=== PATIENT | male | born 1960 | race African-American/Black ===

== ENCOUNTER 2023-11-11 21:15 | Inpatient (IN) | payer OTHER ==
[2023-11-11 22:22] VITALS: BMI 18.6
[2023-11-11] MEDS ORDERED: ACETAMINOPHEN 325 MG TABLET (FP) PO PRN (22:35)
[2023-11-11] MEDS ORDERED: guaiFENesin 600 MG TABLET.ER (FP) PO PRN (22:35)
[2023-11-11] MEDS ORDERED: P-EPHED 60MG/TRIPROLIDI 2.5MG TABLET PO PRN (22:35)
[2023-11-11] MEDS ORDERED: LOPERAMIDE HCL 2 MG CAPSULE PO PRN (22:35)
[2023-11-11] MEDS ORDERED: IBUPROFEN 400 MG TABLET (FP) PO PRN (22:35)
[2023-11-11] MEDS ORDERED: BENZOCAINE/MENTHOL (CHLORASEPTIC ) LOZENGE MM PRN (22:35)
[2023-11-11] MEDS ORDERED: POLYETHYLENE GLYCOL (HEALTHYLAX) 3350 17 GM PACKET PO PRN (22:35)
[2023-11-11] MEDS ORDERED: BISMUTH SUBSALICYLATE 524 MG/30 ML PO PRN (22:35)
[2023-11-11] MEDS ORDERED: MAG HYDROX/AL HYDROX/SIMETH 30 ML UNIT-DOSE CUP PO PRN (22:35)
[2023-11-11] MEDS ORDERED: NALOXONE HCL 0.4 MG/ML VIAL IM PRN (22:35)
[2023-11-11] MEDS ORDERED: NICOTINE POLACRILEX 2 MG LOZENGE BC PRN (22:35)
[2023-11-11] MEDS ORDERED: MAGNESIUM HYDROX 2400MG/30ML ORAL SUSPENSION 30 ML CUP PO PRN (22:35)
[2023-11-11] MEDS ORDERED: DICYCLOMINE HCL 10 MG CAPSULE PO PRN (22:35)
[2023-11-11] MEDS ORDERED: NALOXONE HCL (KLOXXADO) 8 MG SPRAY NS PRN (22:35)
[2023-11-11] MEDS ORDERED: BENZONATATE 200 MG CAPSULE PO PRN (22:35)
[2023-11-11] MEDS ORDERED: IBUPROFEN 600 MG TABLET (FP) PO PRN (22:35)
[2023-11-12] MEDS: cloNIDine HCL 0.1 MG TABLET PO ONE ×4 (00:15→13:53)
[2023-11-12] MEDS: ERYTHROMYCIN 0.5% OPHTHALMIC OINTMENT 3.5 GM TUBE OS SCH (00:17)
[2023-11-12] MEDS: AMOX TR/POT CLAV 875MG/125MG TABLETS (FP) PO SCH (07:10)
[2023-11-12 09:52] LABS: POTASSIUM 4.2 mmol/L (3.5-5.1)
[2023-11-12 10:00] LABS: HEMATOCRIT 34.7 % (35.4-49); HEMOGLOBIN 11.5 GM/dL (11.7-16.9); MCH 23.7 pg (25.7-33.7); MCHC 33.2 g/dl (32.0-35.9); MEAN CELL VOLUME 71.4 fl (80-96); MEAN PLT VOLUME 7.6 fl (7.5-11.1); PLATELET COUNT 320 10^3/uL (134-434); RBC 4.87 M/mm3 (4.00-5.60); RDW 16.5 % (11.9-15.9); WHITE BLOOD COUNT 2.6 K/mm3 (4.0-10.0)
[2023-11-12 10:04] LABS: BLOOD UREA NITROGEN 28.7 mg/dL (7-18); CALCIUM 8.9 mg/dL (8.5-10.1)
[2023-11-12 10:05] LABS: ALBUMIN 3.3 g/dl (3.4-5.0)
[2023-11-12 10:07] LABS: CREATININE 1.5 mg/dL (0.55-1.3)
[2023-11-12 10:18] LABS: BILIRUBIN,TOTAL 0.5 mg/dL (0.2-1)
[2023-11-12] MEDS: PRENATAL VITAMINS W/ FOLIC ACID TABLET (FP) PO SCH (10:54)
[2023-11-12] MEDS: ASPIRIN COATED 81 MG TABLET.EC PO SCH (10:54)
[2023-11-12] MEDS: MELATONIN 5 MG TABLETS PO SCH (22:17)
[2023-11-12] MEDS: THIAMINE 100 MG TABLET PO SCH (22:17)
[2023-11-12] MEDS: hydrOXYzine PAMOATE 25 MG CAPSULE (FP) PO PRN (22:18)
[2023-11-13] MEDS: ONDANSETRON *ODT* 4 MG TABLET SL PRN (01:46)
[2023-11-13] MEDS: cloNIDine HCL 0.1 MG TABLET PO ONE (06:51)
[2023-11-13] MEDS: methaDONE HCL 10 MG TABLET PO ONE (10:04)
[2023-11-13] MEDS: amLODIPine BESYLATE 10 MG TABLET (FP) PO SCH (10:05)
[2023-11-13] MEDS: cloNIDine HCL 0.1 MG TABLET PO SCH (10:09)
[2023-11-13 11:41] LABS: HEMATOCRIT 38.4 % (35.4-49); HEMOGLOBIN 12.5 GM/dL (11.7-16.9); MCH 23.3 pg (25.7-33.7); MCHC 32.6 g/dl (32.0-35.9); MEAN CELL VOLUME 71.4 fl (80-96); MEAN PLT VOLUME 7.7 fl (7.5-11.1); PLATELET COUNT 354 10^3/uL (134-434); RBC 5.38 M/mm3 (4.00-5.60); RDW 16.7 % (11.9-15.9); WHITE BLOOD COUNT 3.4 K/mm3 (4.0-10.0)
[2023-11-13 11:57] LABS: CREATININE 1.1 mg/dL (0.55-1.3)
[2023-11-13] MEDS: ALBUTEROL SO4 HFA INHALER IH PRN (13:45)
[2023-11-13] MEDS: NICOTINE POLACRILEX 2 MG GUM BUC PRN (19:18)
[2023-11-14] MEDS: methaDONE HCL 40 MG DISPERSABLE TABLET PO ONE (09:10)
[2023-11-15] MEDS ORDERED: cloNIDine HCL 0.1 MG TABLET PO PRN
[2023-11-15] MEDS: methaDONE 40 MG, methaDONE 10 MG PO SCH (09:10)
[2023-11-15 09:25] VITALS: RESP 18; TEMP 98
[2023-11-15] MEDS ORDERED: methaDONE HCL 40 MG DISPERSABLE TABLET PO ONE (10:00)
[2023-11-15 13:46] VITALS: BP 141/84; PULSE 85
[2023-11-16] MEDS ORDERED: methaDONE HCL 40 MG DISPERSABLE TABLET PO ONE (10:00)
[2023-11-17] MEDS ORDERED: methaDONE HCL 40 MG DISPERSABLE TABLET PO ONE (10:00)
[2023-11-18] MEDS ORDERED: methaDONE HCL 40 MG DISPERSABLE TABLET PO ONE (10:00)
== END 2023-11-15 14:40 | disposition other institution (70) | DRG 773 ==
LOC: YASAS 21:15 → Y6N 23:06
PROVIDERS: ADMIT Allergy & Immunology; ATTEND Surgery
PROC: HZ2ZZZZ Detoxification Services for Substance Abuse Treatment (ICD-10-PCS; principal; 2023-11-11)
DX: F11.23 Opioid dependence with withdrawal (principal); F11.220 Opioid dependence with intoxication, uncomplicated; F14.20 Cocaine dependence, uncomplicated; F17.210 Nicotine dependence, cigarettes, uncomplicated; R26.2 Difficulty in walking, not elsewhere classified; Z99.89 Dependence on other enabling machines and devices; Z59.00 Homelessness unspecified
CPT/HCPCS: 36415; 71045-TC-FY; 80053; 80305; 82565; 84520; 85025; 85027; 86780; 87811; 93005; 93010; Q0162

== ENCOUNTER 2023-11-15 11:47 | Inpatient (IN) | payer OTHER ==
[2023-11-15] MEDS ORDERED: IBUPROFEN 600 MG TABLET (FP) PO PRN (18:20)
[2023-11-15] MEDS ORDERED: LOPERAMIDE HCL 2 MG CAPSULE PO PRN (18:20)
[2023-11-15] MEDS ORDERED: IBUPROFEN 400 MG TABLET (FP) PO PRN (18:20)
[2023-11-15] MEDS ORDERED: guaiFENesin 600 MG TABLET.ER (FP) PO PRN (18:20)
[2023-11-15] MEDS ORDERED: hydrOXYzine PAMOATE 25 MG CAPSULE (FP) PO PRN (18:20)
[2023-11-15] MEDS ORDERED: NALOXONE HCL 0.4 MG/ML VIAL IM PRN (18:20)
[2023-11-15] MEDS ORDERED: BENZONATATE 200 MG CAPSULE PO PRN (18:20)
[2023-11-15] MEDS ORDERED: POLYETHYLENE GLYCOL (HEALTHYLAX) 3350 17 GM PACKET PO PRN (18:20)
[2023-11-15] MEDS ORDERED: BENZOCAINE/MENTHOL (CHLORASEPTIC ) LOZENGE MM PRN (18:20)
[2023-11-15] MEDS ORDERED: ACETAMINOPHEN 325 MG TABLET (FP) PO PRN (18:20)
[2023-11-15] MEDS ORDERED: NALOXONE HCL (KLOXXADO) 8 MG SPRAY NS PRN (18:20)
[2023-11-15] MEDS: NICOTINE 14 MG/24 HOURS TOPICAL PATCH TD SCH (20:28)
[2023-11-15] MEDS: THIAMINE 100 MG TABLET PO SCH (22:43)
[2023-11-15] MEDS: MELATONIN 5 MG TABLETS PO SCH (22:43)
[2023-11-15] MEDS: NICOTINE POLACRILEX 4 MG GUM BUC PRN (22:44)
[2023-11-15] MEDS: MAG HYDROX/AL HYDROX/SIMETH 30 ML UNIT-DOSE CUP PO PRN (22:44)
[2023-11-15 22:53] LABS: PH,URINE 5.5 (5.0-8.0); URINE APPEARANCE Error; URINE BILIRUBIN NEGATIVE (NEGATIVE); URINE COLOR YELLOW; URINE GLUCOSE (UA) NEGATIVE (NEGATIVE); URINE KETONE TRACE (NEGATIVE); URINE LEUK ESTERASE NEGATIVE (NEGATIVE); URINE NITRITE NEGATIVE (NEGATIVE); URINE PROTEIN TRACE (NEGATIVE); URINE UROBILINOGEN 0.2 mg/dL (0.2-1.0)
[2023-11-16] MEDS: methaDONE 40 MG, methaDONE 10 MG PO SCH (05:41)
[2023-11-16] MEDS ORDERED: methaDONE HCL 10 MG TABLET PO SCH (06:00)
[2023-11-16] MEDS: amLODIPine BESYLATE 5 MG TABLET (FP) PO SCH (10:09)
[2023-11-16] MEDS: PRENATAL VITAMINS W/ FOLIC ACID TABLET (FP) PO SCH (10:09)
[2023-11-16] MEDS: NICOTINE 21 MG/24 HOURS TOPICAL PATCH TD SCH (10:10)
[2023-11-16] MEDS: ALBUTEROL SO4 HFA INHALER IH PRN (10:12)
[2023-11-16 10:45] LABS: CHLORIDE 105 mmol/L (98-107); POTASSIUM 4.7 mmol/L (3.5-5.1); SODIUM 137 mmol/L (136-145)
[2023-11-16 10:54] LABS: HEMATOCRIT 34.7 % (35.4-49); HEMOGLOBIN 11.1 GM/dL (11.7-16.9); MCH 23.1 pg (25.7-33.7); MCHC 31.9 g/dl (32.0-35.9); MEAN CELL VOLUME 72.5 fl (80-96); MEAN PLT VOLUME 7.9 fl (7.5-11.1); PLATELET COUNT 345 10^3/uL (134-434); RBC 4.79 M/mm3 (4.00-5.60); RDW 16.7 % (11.9-15.9)
[2023-11-16 11:01] LABS: ALBUMIN 3.2 g/dl (3.4-5.0); ANION GAP 3 mmol/L (4-13); CALCIUM 8.5 mg/dL (8.5-10.1); CO2 29 mmol/L (21-32); GLUCOSE,RANDOM 96 mg/dL (74-106)
[2023-11-16 11:05] LABS: CREATININE 0.9 mg/dL (0.55-1.3); SGOT/AST 18 U/L (15-37); SGPT/ALT 29 U/L (13-61); TOT PROT 5.9 g/dl (6.4-8.2)
[2023-11-16 11:06] LABS: BILIRUBIN,TOTAL 0.4 mg/dL (0.2-1)
[2023-11-16 11:08] LABS: ALK PHOS 56 U/L (45-117)
[2023-11-16 11:15] LABS: SYPHILIS W/ RPR CONF NON-REACTIVE (NONREACTIVE)
[2023-11-17] MEDS: ERYTHROMYCIN 0.5% OPHTHALMIC OINTMENT 3.5 GM TUBE OD SCH (12:21)
[2023-11-17] MEDS: AMOX TR/POT CLAV 875MG/125MG TABLETS (FP) PO SCH (18:03)
[2023-11-20] MEDS: MAGNESIUM HYDROX 2400MG/30ML ORAL SUSPENSION 30 ML CUP PO PRN (21:28)
[2023-11-24] MEDS ORDERED: AMMONIUM LACTATE 12% LOTION 225 GM BOTTLE TP PRN (10:17)
[2023-11-24] MEDS: FERROUS SO4 325 MG TABLET (FP) PO SCH (12:10)
[2023-11-25] MEDS: methaDONE HCL 40 MG DISPERSABLE TABLET PO SCH (05:51)
[2023-11-25] MEDS: TAMSULOSIN HCL 0.4 MG CAP PO SCH (07:37)
[2023-12-01] MEDS: DOCUSATE SODIUM 100 MG CAPSULE (FP) PO PRN (21:40)
[2023-12-10] MEDS ORDERED: NICOTINE POLACRILEX 4 MG LOZENGE BC PRN (11:23)
[2023-12-11 06:47] VITALS: RESP 16; TEMP 98.2
[2023-12-11 09:07] VITALS: BP 118/71; PULSE 72
== END 2023-12-11 11:46 | disposition home or self-care (01) | DRG 772 ==
LOC: YASAS 11:47 → Y3NR 11:49 → Y3W 11-17 11:50
PROVIDERS: ADMIT Surgery; ATTEND Psychiatry & Neurology Pain Medicine
PROC: HZ42ZZZ Group Counseling for Substance Abuse Treatment, Cognitive-Behavioral (ICD-10-PCS; principal; 2023-11-15)
DX: F11.20 Opioid dependence, uncomplicated (principal); F14.20 Cocaine dependence, uncomplicated; F17.210 Nicotine dependence, cigarettes, uncomplicated; D64.9 Anemia, unspecified; I10 Essential (primary) hypertension; J45.909 Unspecified asthma, uncomplicated; K59.00 Constipation, unspecified; M17.12 Unilateral primary osteoarthritis, left knee; N40.0 Benign prostatic hyperplasia without lower urinary tract symptoms; S20.369A Insect bite (nonvenomous) of unspecified front wall of thorax, initial encounter; S80.861A Insect bite (nonvenomous), right lower leg, initial encounter; W57.XXXA Bitten or stung by nonvenomous insect and other nonvenomous arthropods, initial encounter; Y93.9 Activity, unspecified; Y92.9 Unspecified place or not applicable
CPT/HCPCS: 36415; 80053; 80307; 81003; 85027; 86780; 86803; 87811